=== PATIENT | female | born 1990 | race Caucasian/White ===

== ENCOUNTER 2023-02-07 09:05 | Emergency (ER) | payer BC ==
[~2023-02-07] VITALS: Ht 157.5 cm; Wt 60.0 kg
[~2023-02-07 09:05] MED LIST: SPRINTEC PO; ZITHROMAX500 MG PO
[2023-02-07 09:14] VITALS: BP 103/72
[2023-02-07] MEDS ORDERED: SERTRALINE50 MG PO (09:16)
[2023-02-07 09:31] VITALS: BP 125/41
[2023-02-07 09:45] VITALS: BP 102/65
[2023-02-07 09:57] VITALS: BP 1020/65
[2023-02-07] MEDS ORDERED: ALL DAY10 MG PO (10:05)
== END 2023-02-07 10:38 | disposition home or self-care (01) | DRG 607 ==
LOC: ED 09:05
DX: L71.9 Rosacea, unspecified (principal)